=== PATIENT | female | born 1955 | race Caucasian/White ===

== ENCOUNTER 2018-01-21 11:14 | Emergency (ER) ==
[2018-01-21 11:19] VITALS: BP 107/53; TEMP 98; BMI 27.4
--- NOTE | 2018-01-21 12:33 | CT ---
EXAM: CT right tibia and fibula without contrast. HISTORY: Right lower leg pain, edema and bruising. COMPARISON: None available. TECHNIQUE: Multiple axial images of the right tibia and fibula were obtained without intravenous con trast. Images were reformatted in the sagittal and coronal planes. FINDINGS: A 4.1 x 3 x 6 cm high density collection is seen within the lateral head of the gastrocnem ius with some involvement of the medial head gastrocnemius noted on axial image 50 and coronal image 63. Adjacent subcutaneous edema is present.. No fracture or dislocation identified. The ankle join t spaces are maintained. Small enthesophytes present off the patella and posterior calcaneus. IMPRESSION: Large intramuscular hematoma within the lateral head of the gastrocnemius with mild involvement of th e medial head of the gastrocnemius.
[2018-01-21] MEDS ORDERED: ZOFRAN 4 MG/2 ML IM STA (12:44)
[2018-01-21] MEDS ORDERED: MORPHINE 2 MG/ML SYRINGE IM STA (12:44)
--- NOTE | 2018-01-21 13:02 | ED.PDOC ---
General ED Provider: Dr. LORNA CHUN Chief Complaint: Extremity Pain/Injury Stated Complaint: right lower ext pain and brusing Time Seen by Physician: 11:20 (seen with following people at all times GAMALIEL CAAL AND ORQUIDEA) Mode of Arrival: Wheelchair Information Source: Patient Primary Care Provider: KATHARINE DAMIAN Nursing and Triage Documentation Reviewed and Agree: Yes Does patient meet sepsis criteria?: No System Inflammatory Response Syndrome: Not Applicable (FELT A POP LAST WEEK AND SUDDEN PAIN RIGHT LOWER LEG WHICH HAS BECOME BRUSED AND VERY PAINFULL) Sepsis Protocol: For patient's 13 years and over: Temp is 96.8 and below OR 101 and greater Pulse >90 BPM Resp >20/minute Acutely Altered Mental Status Are patient's symptoms suggestive of a new infection, such as: -Pneumonia -Skin, Soft Tissue -Endocarditis -UTI -Bone, Joint Infection -Implantable Device -Acute Abdominal Infection -Wound Infection -Meningitis -Blood Stream Catheter Infection -Unknown Musculoskeletal Complaint Exam - Lower Extremity Complaint/Exam Location of Pain: Reports: Right, Leg (LOWER LEG ) Mechanism of Injury: Reports: Trauma ( FELT A POP SUDDEN ONSET AND PAIN AND EDEMA RIGHT LOWER LEG X 5 DAYS ) Onset/Duration: 5 DAYS Symptoms Are: Still present Initial Severity: Mild Current Severity: None Character: Reports: Dull Alleviating: Reports: Rest Aggravating: Reports: Movement, Weight bearing, Prolonged standing Able to Bear Weight: Yes Associated Signs and Symptoms: Reports: Swelling, Redness, Bruising (SEE PHOTOS) . Denies: Fever, Weakness, Numbness, Tingling DVT Risk Factors: Reports: Recent trauma Septic Arthritis Risk Factors: Reports: None Related Surgical History: Reports: None Lower Extremity Findings: Present: Swelling, Ecchymosis, Abnormal contour ( EDEMA SEE PHOTOS) Review of Systems - Review Of Systems Constitutional: Reports: No symptoms Eyes: Reports: No symptoms Ears, Nose, Mouth, Throat: Reports: No symptoms Respiratory: Reports: No symptoms Cardiac: Reports: No symptoms GI: Reports: No symptoms : Reports: No symptoms Musculoskeletal: Reports: Muscle pain (RIGHT LOWER LEG) Skin: Reports: No symptoms Neurological: Reports: No symptoms Endocrine: Reports: No symptoms Hematologic/Lymphatic: Reports: No symptoms All Other Systems: Reviewed and Negative Past Medical History - Past Medical History Previously Healthy: Yes Endocrine: Reports: None Cardiovascular: Reports: None Respiratory: Reports: None Hematological: Reports: None Gastrointestinal: Reports: None Genitourinary: Reports: None Neuro/Psych: Reports: None Musculoskeletal: Reports: None Cancer: Reports: None Last Menstrual Period: n/a - Surgical History General Surgical History: Reports: None - Family History Family History: Reports: None - Social History Smoking Status: Never smoker Hx Substance Use: No Alcohol Screening: None Physical Exam - Physical Exam Appearance: Well-appearing, No pain distress, Well-nourished Eyes: ANIA, EOMI, Conjunctiva clear ENT: Ears normal, Nose normal, Oropharynx normal Respiratory: Airway patent, Breath sounds clear, Breath sounds equal, Respirations nonlabored Cardiovascular: RRR, Pulses normal, No rub, No murmur GI/: Soft, Nontender, No masses, Bowel sounds normal, No Organomegaly Musculoskeletal: Limited ROM (RIGHT LOWER LEG ALSO BRUSED AND NOTED TO HAVE AN ENLARGED RIGHT LOWER LEG ) Skin: Warm, Dry, Normal color Neurological: Sensation intact, Motor intact, Reflexes intact, Cranial nerves intact, Alert, Oriented Psychiatric: Affect appropriate, Mood appropriate Interpretation - Radiology Interpretation Radiology Interpretation By: Radiologist Radiology Results: Positive (HEMATOMA) Re-Evaluation - Re-Evaluation Time of Re-Evaluation: 12:30 Status: Unchanged Vital Signs Stable: Yes Pain Level: 5-7/10 IN TOUCHED Appearance: NAD Lungs: Clear Skin: Warm and Dry Neuro: Alert and Oriented X3 CV: RRR Additional Comments: REFUSED [place] STUDY - Re-Evaluation Time of Re-Evaluation: 13:04 (PT STATED SHE WANTS TO GO TO [facility] SHE DOES NOT WISH TO WAIT FOR FURTHER ARRANGMENTS. VASUCALR SURGEON AT [facility] CONTACTED AND STATED THAT HE WOULD LIKE GENERAL SURGERY TO SEE PT FIRST TRANSFER TO ED AT [facility] FOR GEN SURGERY EVAL. PT STATED SHE DOES NOT WISH TO WAIT RISKS OF COMPARTMENT SYNDROME, LIMB LOSS DISCUSSED PRESENT FRANCISCO JAVIER DE GUZMAN PT PREFERS TO GO THERE ON HER OWN) Vital Signs Stable: Yes Appearance: NAD Skin: Warm and Dry Neuro: Alert and Oriented X3 CV: RRR Critical Care Note - Critical Care Note Total Time (mins): 0 Course - Course Orders, Labs, Meds: Orders Category Date Time Status Morphine Sulfate [Morphine 2 mg/ml Syringe] MEDS 01/21/18 12:44 Discontinued 4 mg IM ONCE STA Ondansetron HCl/Pf [Zofran 4 mg/2 ml] MEDS 01/21/18 12:44 Discontinued 4 mg IM ONCE STA CT TIB/FIB RIGHT WO CONTRAST Stat RADS 01/21/18 11:37 Completed U/S VENOUS SCAN RT. LEG Stat RADS 01/21/18 11:37 Ordered Medications Discontinued Medications Generic Name Dose Route Start Last Admin Trade Name Benjiq PRN Reason Stop Dose Admin Morphine Sulfate 4 mg 01/21/18 12:44 Morphine 2 Mg/Ml Syringe IM 01/21/18 12:45 ONCE STA Ondansetron HCl 4 mg 01/21/18 12:44 Zofran 4 Mg/2 Ml IM 01/21/18 12:45 ONCE STA Vital Signs: Temp Pulse Resp BP Pulse Ox 01/21/18 11:16 98.0 F 73 16 107/53 L 94 L Departure - Departure Time of Disposition: 13:07 Disposition: AMA Discharge Problem: Injury of lower extremity Instructions: Leg Pain (ED) Condition: Good Pt referred to PMD for follow-up: Yes IPMP verified?: No Allergies/Adverse Reactions: Allergies No Known Allergies Allergy (Verified 01/21/18 11:19) Home Medications: Ambulatory Orders 1 [No Reported Medications] 01/21/18
== END 2018-01-21 13:20 | disposition left against medical advice (07) ==
LOC: ED 11:14
DX: S80.11XA Contusion of right lower leg, initial encounter (principal); R60.0 Localized edema; M79.604 Pain in right leg
CPT/HCPCS: 99284

== ENCOUNTER 2018-05-18 11:27 | Outpatient (CLI) ==
--- NOTE | 2018-05-18 12:19 | CT ---
EXAM: CT PARANASAL SINUSES HISTORY: Rhinitis TECHNIQUE: CT paranasal sinuses without contrast. Detailed axial sections. Coronal and sagittal re formations. FINDINGS: No comparison. The sinuses are clear. There is no mucosal thickening or sinus fluid. Moderate nasal septal deviati on toward the right at its midportion. There is partial olivia bullous formation of the left middle turbinate. The turbinates are otherwise unremarkable. No postop changes are seen. There is a trace left mastoid process effusion incidentally noted. IMPRESSION: 1. The sinuses are clear. 2. Nasal septal deviation. 3. Trace left mastoid process effusion.
--- NOTE | 2018-05-18 12:29 | DEXA ---
EXAM: BONE DENSITOMETRY HISTORY: Post menopausal. FINDINGS: Exam of the lumbar spine demonstrated a total bone mineral density of the 1.256 g/cm2. T score is 0. 6. Age-matched Z score is 1.9. Exam of the hips revealed a total mean bone mineral density of 1.029 g/cm2. Mean hip T score: 0.2 Mean hip age-matched Z score: 1.1 Study quality: Good. FRAX WHO Fracture Risk Assessment. Ten year probability of fracture (%). Major Osteoporotic Fracture 9.5% Hip Fracture 1.2%. IMPRESSION: Values presented indicate normal bone density of the hips and spine.
== END 2018-05-18 11:28 | disposition home or self-care (01) ==
LOC: RAD 11:27
PROVIDERS: ATTEND Family Medicine
DX: M79.606 Pain in leg, unspecified (principal); F41.9 Anxiety disorder, unspecified; J31.0 Chronic rhinitis; Z11.59 Encounter for screening for other viral diseases; Z78.0 Asymptomatic menopausal state
CPT/HCPCS: 36415; 82607; 86803